=== PATIENT | female | born 1995 | race Caucasian/White ===

== ENCOUNTER 2018-09-06 08:56 | Emergency (ER) | payer MEDICAID ==
[~2018-09-06] VITALS: Ht 162.6 cm; Wt 71.7 kg
[2018-09-06 09:00] VITALS: Ht 162.6 cm; Wt 71.7 kg
[2018-09-06 11:08] VITALS: BP 121/78
== END 2018-09-06 11:08 | disposition home or self-care (01) ==
LOC: ED 08:56
DX: S63.502A Unspecified sprain of left wrist, initial encounter (principal); W01.0XXA Fall on same level from slipping, tripping and stumbling without subsequent striking against object, initial encounter; Y93.89 Activity, other specified; Y92.89 Other specified places as the place of occurrence of the external cause; Y99.8 Other external cause status
CPT/HCPCS: Q0092

== ENCOUNTER 2018-09-18 11:09 | Emergency (ER) | payer OTHER ==
[~2018-09-18] VITALS: Ht 165.1 cm; Wt 73.5 kg
[2018-09-18 12:00] VITALS: Ht 165.1 cm; Wt 73.5 kg
[2018-09-18 14:28] VITALS: BP 124/61
== END 2018-09-18 14:28 | disposition home or self-care (01) ==
LOC: ED 11:09
DX: S63.502D Unspecified sprain of left wrist, subsequent encounter (principal); X58.XXXD Exposure to other specified factors, subsequent encounter

== ENCOUNTER 2018-11-23 04:49 | Emergency (ER) | payer OTHER ==
[~2018-11-23] VITALS: Ht 154.9 cm; Wt 61.7 kg
[2018-11-23 04:55] VITALS: BP 109/67; Ht 154.9 cm; Wt 61.7 kg
== END 2018-11-23 09:24 | disposition home or self-care (01) ==
LOC: ED 04:49
DX: J98.01 Acute bronchospasm (principal)
CPT/HCPCS: J2930; J7613; J7644

== ENCOUNTER 2019-04-23 19:37 | Emergency (ER) | payer OTHER ==
[~2019-04-23] VITALS: Ht 162.6 cm; Wt 74.8 kg
[2019-04-23 20:30] VITALS: Ht 162.6 cm; Wt 74.8 kg
[2019-04-24 00:53] VITALS: BP 127/66
== END 2019-04-24 00:53 | disposition home or self-care (01) ==
LOC: ED 19:37
DX: B34.9 Viral infection, unspecified (principal)